=== PATIENT | female | born 1965 | race Hispanic/Latino ===

== ENCOUNTER 2018-10-02 12:44 | Emergency (ER) | payer OTHER ==
[2018-10-02] MEDS ORDERED: METHYLPREDNISOLONE SOD SUCC 125MG/2ML VIAL ONE (13:55)
[2018-10-02] MEDS ORDERED: IPRATROPIUM/ALBUTEROL SULFATE 3 ML SOLUTION IH ONE (14:05)
== END 2018-10-02 14:30 | disposition home or self-care (01) ==
LOC: EDH 12:44
DX: J10.1 Influenza due to other identified influenza virus with other respiratory manifestations (principal); E11.9 Type 2 diabetes mellitus without complications; M06.9 Rheumatoid arthritis, unspecified; Z90.49 Acquired absence of other specified parts of digestive tract
CPT/HCPCS: 71046; 87804 ×2; 94640; 96372; 99284; A4218; J2930